=== PATIENT | male | born 1965 | race Two or more races ===

== ENCOUNTER 2022-09-16 15:51 | Emergency (ER) | payer OTHER ==
[~2022-09-16] VITALS: Ht 167.6 cm; Wt 82.6 kg
--- NOTE | 2022-09-16 17:00 | NUR ---
Patient discharged to home in stable condition. Written and verbal after care instructions given. Patient verbalizes understanding of instruction.
[2022-09-16 18:19] VITALS: BP 137/90
== END 2022-09-16 18:00 | disposition home or self-care (01) ==
LOC: ER 17:02
DX: R00.2 Palpitations (principal); I10 Essential (primary) hypertension; E78.5 Hyperlipidemia, unspecified; E78.00 Pure hypercholesterolemia, unspecified; Z60.2 Problems related to living alone